=== PATIENT | male | born 1995 | race Caucasian/White ===

== ENCOUNTER 2021-09-27 00:39 | Emergency (ER) | payer BC, MEDICAID ==
[~2021-09-27] VITALS: Ht 180.3 cm; Wt 99.4 kg
[~2021-09-27 00:39] MED LIST: IBUP-1986 PO
[2021-09-27] MEDS ORDERED: morphine 2 MG/ML inj. syringe IV PRN (03:50)
[2021-09-27] MEDS ORDERED: ondansetron/PF 4mg/2ml inj IV ONE (03:50)
[2021-09-27] MEDS ORDERED: cyclobenzaprine 10mg tablet PO ONE (03:50)
[2021-09-27] MEDS ORDERED: morphine 4 MG/ML inj SYRINge IV ONE (03:50)
[2021-09-27] MEDS ORDERED: HYDR-3965 PO (05:03)
[2021-09-27 05:12] VITALS: BP 145/92
== END 2021-09-27 05:15 | disposition home or self-care (01) ==
LOC: ER 00:41
DX: M25.512 Pain in left shoulder (principal); Z72.0 Tobacco use; Z98.890 Other specified postprocedural states; Z79.899 Other long term (current) drug therapy
CPT/HCPCS: 96374; 96375; 99284; J2270; J2405